=== PATIENT | male | born 1960 | race Caucasian/White ===

== ENCOUNTER 2017-02-03 13:25 | Inpatient (IN) | payer OTHER ==
[~2017-02-03] VITALS: Ht 175.3 cm; Wt 106.6 kg
[~2017-02-03 13:25] MED LIST: ALPR-475 PO; CYCL-259 PO; HYDR1TAB16 PO; MELO15TA6 PO
[2017-02-03] MEDS ORDERED: DIAZEPAM 5 MG/ML, 2ML IVPush ONE (14:00)
[2017-02-03] MEDS ORDERED: SODIUM CHLORIDE FLUSH 10ML SYR IVF ONE (14:00)
[2017-02-03] MEDS ORDERED: ONDANSETRON 2MG/ML, 2ML IVPush ONE (14:00)
[2017-02-03] MEDS ORDERED: KETOROLAC 30 MG/1 ML IVPush ONE (14:00)
[2017-02-03] MEDS ORDERED: HYDROmorphone 1 MG/ML, 1ML ONE ×3 (14:02→16:39)
[2017-02-03] MEDS ORDERED: ONDANSETRON 2MG/ML, 2ML ONE ×2 (14:02→16:40)
[2017-02-03] MEDS ORDERED: KETOROLAC 30 MG/1 ML ONE (14:02)
[2017-02-03] MEDS: HYDROmorphone 1 MG/ML, 1ML IVPush PRN ×2 (14:10→15:21)
[2017-02-03] MEDS ORDERED: ONDANSETRON 2MG/ML, 2ML IVPush PRN ×2 (16:30→17:00)
[2017-02-03] MEDS ORDERED: DEXAMETHASONE 4 MG/ML, 1ML IVPush ONE (16:30)
[2017-02-03] MEDS ORDERED: HYDROmorphone 1 MG/ML, 1ML IVPush PRN (16:30)
[2017-02-03] MEDS ORDERED: SODIUM CHLORIDE FLUSH 10ML SYR IVF PRN (16:30)
[2017-02-03] MEDS ORDERED: DEXAMETHASONE 4 MG/ML, 5ML ONE (16:39)
[2017-02-03] MEDS ORDERED: LORazepam 2 MG/ML, 1ML IVPush PRN (17:00)
[2017-02-03] MEDS ORDERED: ACETAMINOPHEN 325 MG TABLET PO PRN (17:00)
[2017-02-03] MEDS ORDERED: hydrALAzine 20 MG/ML, 1ML IVPush PRN (17:00)
[2017-02-03 17:53] LABS: ASPARTATE AMINO TRANSFERASE 21 U/L (15-37); BLOOD UREA NITROGEN 15 mg/dL (7-18)
[2017-02-03 17:54] VITALS: BP 122/93
[2017-02-03] MEDS: HYDROcodone/APAP 5/325 TABLET PO PRN ×2 (18:45→22:56)
[2017-02-03 18:52] VITALS: BP 137/80
[2017-02-03] MEDS: SODIUM CHLORIDE 0.9% 1,000 ML IV SCH (20:56)
[2017-02-04] MEDS ORDERED: FAMOTIDINE 20 MG/2 ML IVPush ONE (00:30)
[2017-02-04 01:50] VITALS: BP 117/78
[2017-02-04] MEDS: SODIUM CHLORIDE 0.9% 1,000 ML IV SCH ×3 (04:28→19:59)
[2017-02-04 05:36] LABS: HEMATOCRIT 45.5 % (39.2-51.8); HEMOGLOBIN 15.3 g/dL (13.7-18.0); WHITE BLOOD COUNT 11.5 x10^3/uL (3.4-10)
[2017-02-04 05:45] LABS: BLOOD UREA NITROGEN 20 mg/dL (7-18)
[2017-02-04 05:49] LABS: ASPARTATE AMINO TRANSFERASE 16 U/L (15-37)
[2017-02-04 07:40] VITALS: BP 103/63
[2017-02-04] MEDS: PANTOPRAZOLE 40 MG IV IVPush SCH (13:14)
[2017-02-04] MEDS ORDERED: FENTANYL PF 100 MCG/2ML ONE (13:54)
[2017-02-04] MEDS ORDERED: MIDAZOLAM 1 MG/ML, 5ML ONE (13:54)
[2017-02-04] MEDS ORDERED: GADOBUTROL 10 MMOL/10 ML PFS ONE (15:15)
[2017-02-04 17:05] VITALS: BP 110/60
[2017-02-04] MEDS: HYDROcodone/APAP 5/325 TABLET PO PRN (17:35)
[2017-02-04 19:36] VITALS: BP 111/65
[2017-02-05] MEDS: PANTOPRAZOLE 40 MG IV IVPush SCH ×2 (00:03→11:50)
[2017-02-05 00:08] VITALS: BP 111/75
[2017-02-05] MEDS: SODIUM CHLORIDE 0.9% 1,000 ML IV SCH (03:34)
[2017-02-05 07:20] VITALS: BP 109/71
[2017-02-05] MEDS ORDERED: DOCUSATE 100 MG CAPSULE ONE (07:38)
[2017-02-05] MEDS: HYDROcodone/APAP 5/325 TABLET PO PRN ×2 (07:42→13:03)
[2017-02-05] MEDS ORDERED: DOCUSATE 100 MG CAPSULE PO SCH (09:00)
[2017-02-05] MEDS ORDERED: DOCU-131 PO (11:27)
[2017-02-05 15:32] VITALS: BP 130/83
== END 2017-02-05 15:48 | disposition home or self-care (01) | DRG 552 ==
LOC: ED 16:16 → EDIP 16:17 → SUATTDRO 16:46 → ED 17:09 → 3NE 17:50
PROVIDERS: ADMIT Family Medicine; ATTEND Internal Medicine
DX: M51.17 Intervertebral disc disorders with radiculopathy, lumbosacral region (principal); M51.24 Other intervertebral disc displacement, thoracic region; E66.9 Obesity, unspecified; E78.5 Hyperlipidemia, unspecified; Z68.34 Body mass index [BMI] 34.0-34.9, adult; F40.240 Claustrophobia; K21.9 Gastro-esophageal reflux disease without esophagitis; K59.00 Constipation, unspecified; M21.372 Foot drop, left foot; Z87.891 Personal history of nicotine dependence; Z88.1 Allergy status to other antibiotic agents; M50.322 Other cervical disc degeneration at C5-C6 level
CPT/HCPCS: 36415; 72148; 72156; 72157; 80053; 83735; 84100; 84439; 84443; 85025; 85610; 96374; 96375; 96376; 99156; 99157; A9585; J1170; J1885; J2250; J2405; J3010; J3360; C9113; J2060; J7030; S0028